=== PATIENT | female | born 1980 | race Caucasian/White ===

== ENCOUNTER 2016-11-05 10:29 | Emergency (ER) | payer MEDICAID ==
[2016-11-05] MEDS ORDERED: SODIUM CHLORIDE 0.9% 1,000 ML IV ONE (11:15)
[2016-11-05] MEDS ORDERED: ONDANSETRON 4 MG/2 ML VIAL IVP STA (11:16)
[2016-11-05] MEDS ORDERED: fentaNYL 100 MCG/2 ML VIAL IVP STA ×2 (11:16→12:12)
[2016-11-05] MEDS ORDERED: ONDANSETRON 4 MG/2 ML VIAL ONE (11:35)
[2016-11-05] MEDS ORDERED: fentaNYL 100 MCG/2 ML VIAL ONE ×2 (11:35→12:13)
[2016-11-05] MEDS ORDERED: PHENobarb/HYOSCY/ATROPINE/SCOP 5 ML SYRINGE PO STA (13:10)
[2016-11-05] MEDS ORDERED: MAG HYDROX/AL HYDROX/SIMETH 30 ML UDC PO STA (13:10)
[2016-11-05] MEDS ORDERED: SUCRALFATE 1 GM/10 ML UDC PO STA (13:10)
[2016-11-05] MEDS ORDERED: MAG HYDROX/AL HYDROX/SIMETH 30 ML UDC ONE (13:13)
[2016-11-05] MEDS ORDERED: PHENobarb/HYOSCY/ATROPINE/SCOP 5 ML SYRINGE PO ONE (13:13)
[2016-11-05] MEDS ORDERED: SUCRALFATE 1 GM/10 ML UDC ONE (13:13)
== END 2016-11-05 13:22 | disposition home or self-care (01) ==
DX: R10.13 Epigastric pain (principal); R03.0 Elevated blood-pressure reading, without diagnosis of hypertension; Z87.19 Personal history of other diseases of the digestive system; K21.9 Gastro-esophageal reflux disease without esophagitis; F17.200 Nicotine dependence, unspecified, uncomplicated
CPT/HCPCS: 36415; 74176; 80053; 83690; 84703; 85025; 93005; 93010; 96374; 96375; 96376; 99283; 99285; A9270

== ENCOUNTER 2018-07-10 07:13 | Observation (INO) | payer OTHER, MEDICAID ==
[2018-07-10] MEDS ORDERED: SODIUM CHLORIDE 0.9% 1,000 ML IV ONE (08:06)
[2018-07-10] MEDS ORDERED: KETOROLAC 60 MG/2 ML VIAL IVP STA (08:06)
--- NOTE | 2018-07-10 08:09 | ED Physician Documentation ---
History of Present Illness - Stated complaint Stated Complaint: ELECTRIC SHOCK - Chief complaint Chief Complaint: General - Additonal information Additional information: hx from pt 38 y/o f denies preg [place] 4th finger touched the machine and her R elbow was touching metal she states machine is wired to 220V she was unable to let go for several seconds then her elbow came off the metal -she felt severe pain up her arm to her chest - and she was able to let go was not thrown or suffered any blunt trauma to ED with CP, unable to catch her breath and pain to arm with cold fingers was well prior to this event Review of Systems Constitutional: denies: Fever, Chills Cardiac: reports: Chest pain / pressure, Palpitations Respiratory: reports: Dyspnea GI: reports: Vomiting (from cough). 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 - Present Medications Home Medications: Ambulatory Orders Medication Instructions Recorded Confirmed ALPRAZolam [Alprazolam] 0.5 mg PO DAILY PRN 07/10/18 07/10/18 Albuterol Sulfate [Proair Hfa 2 puffs INH Q4H PRN 07/10/18 07/10/18 Inhaler] Gabapentin 300 mg PO TID 07/10/18 07/10/18 Methylphenidate HCl 20 mg PO 0900,1600 07/10/18 07/10/18 - Allergies Allergies/Adverse Reactions: Allergies Allergy/AdvReac Type Severity Reaction Status Date / Time iodine Allergy Respiratory Verified 07/10/18 07:23 latex Allergy Rash Verified 07/10/18 07:23 morphine Allergy Itching Verified 07/10/18 07:23 tramadol Allergy Rash Verified 07/10/18 07:23 Anesthetics - Amide Type AdvReac Unknown Verified 07/10/18 07:23 hydromorphone HCl * AdvReac Unknown Verified 07/10/18 07:23 [From Dilaudid] - Social History Does the pt smoke?: Yes Smoking Status: Current every day smoker Does the pt drink ETOH?: No Does the pt have substance abuse?: No - Immunizations Immunizations are current?: Yes - POLST Patient has POLST: No PD ED PE NORMAL - Vitals Vital signs reviewed: Yes - General General: Alert and oriented X 3 - HEENT HEENT: PERRL - Neck Neck: Supple, no meningeal sign - Cardiac Cardiac: RRR, Other (tachy) - Respiratory Respiratory: No respiratory distress, Clear bilaterally - Abdomen Abdomen: Soft, Non tender - Derm Derm: Normal color - Extremities Extremities: Other (RUE: exit mary lou just above R elbow, prior surgical scar but pt denies hardware, arm cmpt soft, strong radial and ulnar pulses, brsk cap refill, but hand is cool, no sig swelling) - Neuro Neuro: Alert and oriented X 3, 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, No motor deficit, No sensory deficit Eye Opening: Spontaneous Motor: Obeys Commands Verbal: Oriented GCS Score: 15 Results - Vitals Vitals: Vital Signs - 24 hr 07/10/18 07/10/18 07/10/18 07:20 09:33 11:12 Temperature 36.5 C 37.7 C H Heart Rate 125 H 89 97 Respiratory 16 11 L 18 Rate Blood Pressure 123/75 106/67 118/72 O2 Saturation 100 100 99 Oxygen O2 Source Room air - EKG (time done) 0725 Rate: Rate (enter#) (122) Rhythm: Sinus tachycardia Ischemia: Normal ST segments - Labs Labs: Laboratory Tests 07/10/18 07/10/18 07/10/18 08:04 08:04 08:06 WBC 8.1 RBC 4.58 Hgb 13.8 Hct 40.6 MCV 88.8 MCH 30.2 MCHC 34.1 RDW 13.4 Plt Count 219 MPV 9.3 Neut # (Auto) 5.8 Lymph # (Auto) 1.5 [place] # (Auto) 0.7 Eos # (Auto) 0.1 Baso # (Auto) 0.0 Absolute Nucleated RBC 0.00 Nucleated RBC % 0.0 Sodium 136 Potassium 3.6 Chloride 105 Carbon Dioxide 25 Anion Gap 6.0 BUN 10 Creatinine 0.7 Estimated GFR (MDRD) 94 Glucose 112 H Calcium 8.7 Total Creatine Kinase 42 Troponin I < 0.04 - Rads (name of study) CXR Radiology: See rad report (NACPD) PD MEDICAL DECISION MAKING - ED course ED course: chest pain and tachycardia (up to 160 while I was in the room) gradually resolved - trop neg CK neg but given mechanism and her prolonged CP and VS merits prolonged tele also R arm becoming more painful and swollen, now pain with passive ext of fingers, still go cap refill but fingers cool, concern for cmpt syndrome despite meds in ED, sx are worsening spoke to ortho at 1035 to come to ED to eval cmpt and hospitalist at 1045 for admission see ortho consult Departure - Departure Disposition: ED Place in Observation Clinical Impression: Electric shock Qualifiers: Encounter type: initial encounter Qualified Code(s): T75.4XXA - Electrocution, initial encounter Chest pain Qualifiers: Chest pain type: unspecified Qualified Code(s): R07.9 - Chest pain, unspecified Arm pain Qualifiers: Laterality: right Qualified Code(s): M79.601 - Pain in right arm Condition: Good Discharge Date/Time: 07/10/18 12:10
[2018-07-10 08:20] LABS: CALCIUM 8.7 mg/dL (8.5-10.3); CREATININE 0.7 mg/dL (0.4-1.0)
[2018-07-10 08:24] LABS: BASOPHILS % (AUTO) 0.5 %; EOSINOPHILS # (AUTO) 0.1 10^3/uL (0.0-0.7); HGB - HEMOGLOBIN 13.8 g/dL (12.0-16.0); LYMPHOCYTES # (AUTO) 1.5 10^3/uL (1.5-3.5); MEAN CORPUSCULAR HEMOGLOBIN 30.2 pg (27.0-31.0); MEAN CORPUSCULAR HGB CONC 34.1 g/dL (32.0-36.0); MEAN CORPUSCULAR VOLUME 88.8 fL (81.0-99.0); MEAN PLATELET VOLUME 9.3 fL (7.9-10.8); MONOCYTES # (AUTO) 0.7 10^3/uL (0.0-1.0); MONOCYTES % (AUTO) 8.5 %; NEUTROPHILS # (AUTO) 5.8 10^3/uL (1.5-6.6); PLT - PLATELET COUNT 219 10^3/uL (130-450); RED BLOOD COUNT 4.58 10^6/uL (4.20-5.40); RED CELL DISTRIBUTION WIDTH 13.4 % (12.0-15.0); WHITE BLOOD COUNT 8.1 x10^3/uL (4.8-10.8)
--- NOTE | 2018-07-10 08:38 | XRAY Report ---
Reason: soa CP s/p electric shock Procedure Date: 07/10/2018 Accession Number: [id number] / [id number] Procedure: XR - Chest 2 View X-Ray CPT Code: 50372 FULL RESULT: EXAM: CHEST RADIOGRAPHY EXAM DATE: 07/10/2018 08:27 AM. CLINICAL HISTORY: Soa CP s/p electric shock. COMPARISON: None. TECHNIQUE: 2 views. FINDINGS: Lungs/Pleura: Lung volumes are low. Minimal bibasal opacity probably atelectasis. No focal pulmonary consolidation, significant pleural effusion, or evidence of pneumothorax. Mediastinum: Heart and mediastinal contours are unremarkable. Other: None. IMPRESSION: No convincing acute cardiopulmonary abnormality. RADIA
[2018-07-10] MEDS ORDERED: oxyCODONE 5 MG TABLET PO STA (09:42)
--- NOTE | 2018-07-10 11:11 | CONSULTATION NOTE ---
Referring Provider Name of Referring Provider:: Renee Estrada Consult Date: 07/10/18 Chief Complaint - Chief Complaint Chief Complaint: Asked to evaluate patient for reported progressing neurovascular symptoms History of Present Illness - History of Present Illness HPI Comment/Other: Salma is a 38-year-old female in her usual state of health until approximately 5 or 5:30 AM. She says she was at work and reaching into a device to change a light bulb and ultimately felt a shock coming through her right elbow. Patient said she had worsening pain and ultimately presented to the emergency room. Orthopedics was consulted by Dr. Estrada for reported developing neurovascular symptoms. The patient said that at some point her hand and wrist were somewhat cooler but that that has resolved and now they are feeling warmer. She says she has intermittent pain and describes pain in numerous locations from her hand forearm arm and shoulder. She says that she even has some side of the right rib pain. Says in these various locations it comes and goes and can sometimes feel like burning or stabbing pain. She says that this very instant she has some mild pain points to the distal medial arm and proximal right chest wall. She denies forearm pain at this instant. She is accompanied by her Andrez. 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 - POLST Patient has POLST: No Meds/Allgy - Home Medications Home Medications: Ambulatory Orders Medication Instructions Recorded Confirmed Albuterol Sulfate [Proair Hfa 2 puffs INH Q4H PRN 07/10/18 Inhaler] Gabapentin 300 mg PO TID 07/10/18 Methylphenidate HCl 20 mg PO BID 07/10/18 - Allergies Allergies/Adverse Reactions: Allergies Allergy/AdvReac Type Severity Reaction Status Date / Time iodine Allergy Respiratory Verified 07/10/18 07:23 latex Allergy Rash Verified 07/10/18 07:23 morphine Allergy Itching Verified 07/10/18 07:23 tramadol Allergy Rash Verified 07/10/18 07:23 Anesthetics - Amide Type AdvReac Unknown Verified 07/10/18 07:23 hydromorphone HCl * AdvReac Unknown Verified 07/10/18 07:23 [From Dilaudid] Exam - Vital Signs Vital Signs: Vital Signs x48h Temp Pulse Resp BP Pulse Ox 07/10/18 09:33 89 11 L 106/67 100 07/10/18 07:20 36.5 C 125 H 16 123/75 100 - Physical Exam Comments/Other: Patient is a well-developed well-nourished 38-year-old female in some distress. She is alert and oriented and cooperative with the exam. Patient is observed during the history portion of the exam to use the entire right upper extremity to demonstrate what happened to her earlier today. During this she is observed to freely move her shoulder elbow wrist and hand. She demonstrates radial median ulnar musculocutaneous and axillary motor and sensory function. She reports subjective mild decreased ulnar sensation over the ulnar aspect of the fifth digit but not elsewhere. She quickly and easily demonstrates flexion extension of all of her digits and wrist. She also easily flexes and extends the elbow and pronates and supinates the forearm. Right shoulder exam she has forward flexion within 5 degrees of the contralateral side she has 5 out of 5 rotator cuff strength throughout. Arm compartments are soft. forearm compartments compared to the contralateral are with trace increased firmness but remained quite supple and soft. No focal tenderness about the right forearm. Ports mild tightness, with terminal 5 degrees extension of the digits, near the proximal flexor musculature but denies significant pain. All other passive hand wrist elbow forearm motion is comfortable with no increase in pain. Conclusion/Plan - Diagnosis Diagnosis: Right upper extremity intermittent, multi focal pain status post electrical shock. No current significant evidence for forearm compartment syndrome. - Lab Results Fish Bones: 07/10/18 08:04 07/10/18 08:06 - Other Other Results/Comments: Salma is a 38-year-old female with right upper extremity intermittent and multifocal pain. This is status post right upper extremity electrical shock. Fortunately she is observed to spontaneously and voluntarily move all parts of the right upper extremity. Furthermore with examination, she moves her hand wrist forearm elbow freely. While she likely does have some soft tissue injury secondary to the shock, there does not appear to be significant evidence at this time for compartment syndrome. That said we did discuss the potential for developing compartment syndrome. We did discuss the potential for worsening and the potential signs and symptoms that may accompany compartment syndrome. Also discussed the potential devastating effects of compartment syndrome should that develop. Talked about the potential need for other intervention such as emergent surgery. In the meantime I recommended active and active assisted range of motion of her hand wrist forearm and elbow which will likely limit potential stiffness and longer term problems. I did caution her about avoidance of motion at this time. By report it does sound as if the patient will be admitted to the hospitalist service for observation. While it does not appear as if she has active compartment syndrome I think it is reasonable for pain management and continued neurovascular checks. As such I would recommend every hour neurovascular checks. We remain available for reevaluation as necessary if there is any worsening of her symptoms. This is communicated to the consulting hospitalist and the patient/. Patient and patient 's questions were answered they verbalized understanding and agreement with the above.
[2018-07-10] MEDS ORDERED: SODIUM CHLORIDE FLUSH 0.9% 10 ML SYRINGE IVP PRN (11:21)
[2018-07-10] MEDS ORDERED: fentaNYL 250 MCG/5 ML VIAL IVP PRN ×2 (11:24→13:07)
[2018-07-10] MEDS ORDERED: KETOROLAC 10 MG TABLET PO PRN (11:30)
[2018-07-10] MEDS ORDERED: LORazepam 2 MG/ML VIAL IVP PRN (11:30)
[2018-07-10] MEDS ORDERED: ACETAMINOPHEN 1,000 MG/100 ML 100 ML IV STA (11:40)
[2018-07-10] MEDS ORDERED: NS W/20 MEQ KCL 1,000 ML IV SCH (12:00)
[2018-07-10] MEDS ORDERED: OXYMETAZOLINE NASAL SPRAY NAS SCH (12:00)
--- NOTE | 2018-07-10 12:30 | HISTORY & PHYSICAL EXAMINATION ---
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 She reports that she sustained about a 5 second shock from a food warmer that keeps food at a temperature of 140 F as she was changing a light bulb. She states that she had the switch turned off, but for some reason she was told that it had shorted out which caused the shock to her right fingertips. This occurred at around 0500 on the [employer] passenger kitchen area and she almost immediately had mid-upper, anterior chest pain with pressure. She states that she was very reluctant in coming into the hospital, but was heavily encouraged to by her boss in the event she would have more complications. Orthopedic surgery was consulted in the ED, who advised no surgical interventions at this time, but it is important to keep a close eye as compartment syndrome could develop in her right forearm from the trauma and length of electrical shock. Labs were unremarkable, including a normal troponin. The patient's , Alonzo was at the bedside. She is agreeable to further work up including serial troponins, an echocardiogram and repeat EKG. She will be admitted to observation. 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 Her biological children are ages 11, 14, & 16. She works for the [employer]. She denies alcohol or illicit drug use, but has been dependent on tobacco since age 16 years. She wishes to be a FULL code. - Substance History Use: Uses substance without health or social issues: Tobacco Abuse: Recurrent use of substance despite neg consequences: NONE Dependence: Experiences withdrawal or developed tolerances: NONE Tobacco Details: Cigarettes - POLST Patient has POLST: No POLST Status: Full Code Meds/Allgy - Home Medications Home Medications: Ambulatory Orders Medication Instructions Recorded Confirmed ALPRAZolam [Alprazolam] 0.5 mg PO DAILY PRN 07/10/18 07/10/18 Albuterol Sulfate [Proair Hfa 2 puffs INH Q4H PRN 07/10/18 07/10/18 Inhaler] Gabapentin 300 mg PO TID 07/10/18 07/10/18 Methylphenidate HCl 20 mg PO 0900,1600 07/10/18 07/10/18 - Allergies Allergies/Adverse Reactions: Allergies Allergy/AdvReac Type Severity Reaction Status Date / Time iodine Allergy Respiratory Verified 07/10/18 07:23 latex Allergy Rash Verified 07/10/18 07:23 morphine Allergy Itching Verified 07/10/18 07:23 tramadol Allergy Rash Verified 07/10/18 07:23 Anesthetics - Amide Type AdvReac Unknown Verified 07/10/18 07:23 hydromorphone HCl * AdvReac Unknown Verified 07/10/18 07:23 [From Dilaudid] Review of Systems - Constitutional Constitutional: denies: Fatigue, Fever, Chills - Eyes Eyes: denies: Pain, Irritation, Amaurosis - Ears, Nose & Throat Ears, Nose & Throat: reports: Ear pain (chronic "fluid in ears"), Postnasal drainage - Cardiovascular Cariovascular: reports: Chest pain. denies: Irregular heart rate - Respiratory Respiratory: reports: Cough - Gastrointestinal Gastrointestinal: reports: Constipation, Diarrhea. denies: Abdominal pain, Abdominal distention - Genitourinary Genitourinary: denies: Dysuria - Musculoskeletal Musculoskeletal: denies: Muscle pain - Integumentary Integumentary: denies: Rash, Pruritis - Neurological Neurological: reports: Numbness (to right fingertips, hot/cold sensation). denies: General weakness - Psychiatric Psychiatric: reports: Depression, Anxiety, Other (ADD) - Hematologic/Lymphatic Hematologic/Lymphatic: denies: Anemia, Petechiae - All Other Systems All Other Systems: reports: Reviewed and negative Prior Level of Functionality: Ambulatory, works for the [employer]. Has never been disabled, has dependent children and a . Exam - Vital Signs Reviewed Vital Signs: Yes Vital Signs: Vital Signs x48h Temp Pulse Resp BP Pulse Ox 07/10/18 12:10 36.8 C 88 20 114/63 100 07/10/18 11:12 37.7 C H 97 18 118/72 99 07/10/18 09:33 89 11 L 106/67 100 07/10/18 07:20 36.5 C 125 H 16 123/75 100 - Physical Exam General Appearance: positive: Alert, Moderate distress, Anxious Eyes Bilateral: positive: PERRL ENT: positive: Pharynx nml, No signs of dehydration Neck: positive: Thyroid nml, No JVD, Lymphadenopathy (R), Lymphadenopathy (L) Respiratory: positive: Chest non-tender, No respiratory distress Cardiovascular: positive: Regular rate & rhythm, Systolic murmur Peripheral Pulses: positive: 2+ Abdomen: positive: Non-tender, Nml bowel sounds Back: positive: Nml inspection Skin: positive: No rash, Warm, Dry Extremities: positive: Non-tender, Full ROM, Nml appearance, No pedal edema Neurologic/Psychiatric: positive: Oriented x3, CN's nml (2-12), Motor nml, Sensation nml, Depressed mood/affect (tearful at times) Reflexes: Bicep (R): 3+, Bicep (L): 4+ Sepsis Event Note (H) - Evaluation Current Stage of Sepsis: Ruled out Conclusion/Plan - Problem List (1) Electrical shock of hand Conclusion/Plan: She reports that she sustained about a 5 second shock from a food warmer that keeps food at a temperature of 140 F as she was changing a light bulb. She states that she had the switch turned off, but for some reason she was told that it had shorted out which caused the shock to her right fingertips. This occurred at around 0500 on the [employer] passenger kitchen area and she almost immediately had mid-upper, anterior chest pain with pressure. An orthopedic consult was made by Dr. Timmons, who recommends active assisted range of motion of her hand wrist forearm and elbow which will likely limit potential stiffness and longer term problems. She was cautioned about avoidance of motion. It does not appear as if she has active compartment syndrome. Plan: Continue to monitor pain, neuro checks, and monitor for acute compartment syndrome. Qualifiers: Encounter type: initial encounter Qualified Code(s): T75.4XXA - Electrocution, initial encounter (2) Chest pain Conclusion/Plan: his occurred at around 0500 on the [facility] passenger kitchen area and she almost immediately had mid-upper, anterior chest pain with pressure. She states that she was very reluctant in coming into the hospital, but was heavily encouraged to by her boss in the event she would have more complications. She denies any prior cardiac history including TN, HTN, hyperlipidemia, but admits to smoking from age to currently. Plan: Await echo, repeat EKG, and serial troponin. (3) Tobacco dependence Conclusion/Plan: The patient has been a smoker since age 16 years and generally would smoke just over 1 PPD, and lately is down to 3/4s of a pack per day. She was very concerned with this hospital stay given her stress level and requested to leave the building to smoke, which I instructed her to stay. Plan: Nicotine patch, and encourage cessation. - Lab Results Lab results reviewed: Yes Maurice Bones: 07/10/18 08:04 07/10/18 08:06 Core Measures - Anticipated LOS I expect patient to be DC'd or transferred within 96 hours.: Yes - DVT/VTE - Prophylaxis VTE/DVT Device ordered at admit?: Yes VTE/DVT Prophylaxis med ordered at admit?: No Not Ordered - Medical Reason: Contraindicated - Stroke - Rehab Assessment Rehab services assessment to be ordered?: No Not Ordered - Medical Reason: Contraindicated - AMI - Statin at Admit Aspirin Prescribed on Admit: No Not Ordered - Medical Reason: Contraindicated
[2018-07-10] MEDS ORDERED: NICOTINE 21 MG PATCH TOP SCH (13:00)
[2018-07-10] MEDS ORDERED: fentaNYL 100 MCG/2 ML VIAL IVP PRN (13:19)
[2018-07-10] MEDS ORDERED: GABAPENTIN 300 MG CAPSULE PO SCH (14:00)
[2018-07-10 14:26] LABS: MAGNESIUM 1.9 mg/dL (1.7-2.8)
[2018-07-10] MEDS ORDERED: METHYLPHENIDATE 10 MG TABLET PO SCH (16:00)
--- NOTE | 2018-07-10 16:34 | DISCHARGE SUMMARY ---
Discharge Summary Admit Date: 07/10/18 Discharge Date: 07/10/18 Discharging Provider: SAM Stack Primary Care Provider: Dr. Edward Code Status: Attempt Resuscitation Condition at Discharge: Good Discharge Disposition: 01 Home, Self Care - DIAGNOSES Admission Diagnoses: Electrocution, initial encounter (T75.4XXA) Chest pain (R07.9) Tobacco dependence (F17.200) Discharge Diagnoses with Status of Each Condition: Electrocution, initial encounter (T75.4XXA) resolved. Chest pain (R07.9) resolved. Tobacco dependence (F17.200) chronic, ongoing with no interest in quitting. - HPI History of Present Illness: Chata Poon) Teresa is a 38-year old female with a past medical history of tobacco dependence, anxiety, ADD, and chronic vascular dysfunction of her fingers/toes. She reports that she sustained about a 5 second shock from a food warmer that keeps food at a temperature of 140 F as she was changing a light bulb. She states that she had the switch turned off, but for some reason she was told that it had shorted out which caused the shock to her right fingertips. This occurred at around 0500 on the [employer] passenger kitchen area and she almost immediately had mid-upper, anterior chest pain with pressure. She states that she was very reluctant in coming into the hospital, but was heavily encouraged to by her boss in the event she would have more complications. Orthopedic surgery was consulted in the ED, who advised no surgical interventions at this time, but it is important to keep a close eye as compartment syndrome could develop in her right forearm from the trauma and length of electrical shock. Labs were unremarkable, including a normal tro ponin. The patient's , Alonzo was at the bedside. She is agreeable to further work up including serial troponins, an echocardiogram and repeat EKG. She will be admitted to observation. - HOSPITAL COURSE Hospital Course: The patient was monitored for the day, had a normal echo, normal EKGs, and normal troponins. She was seen and examined by our orthopedic surgeon who suggested certain ROM exercises to help in the coming days. A work excuse was provided. She was instable condition and is expected to continue to improve at home. - ALLERGIES Allergies/Adverse Reactions: Allergies Allergy/AdvReac Type Severity Reaction Status Date / Time iodine Allergy Respiratory Verified 07/10/18 07:23 latex Allergy Rash Verified 07/10/18 07:23 morphine Allergy Itching Verified 07/10/18 07:23 tramadol Allergy Rash Verified 07/10/18 07:23 Anesthetics - Amide Type AdvReac Unknown Verified 07/10/18 07:23 hydromorphone HCl * AdvReac Unknown Verified 07/10/18 07:23 [From Dilaudid] - MEDICATIONS Home Medications: Ambulatory Orders Medication Instructions Recorded Confirmed ALPRAZolam [Alprazolam] 0.5 mg PO DAILY PRN 07/10/18 07/10/18 Albuterol Sulfate [Proair Hfa 2 puffs INH Q4H PRN 07/10/18 07/10/18 Inhaler] Gabapentin 300 mg PO TID 07/10/18 07/10/18 Methylphenidate HCl 20 mg PO 0900,1600 07/10/18 07/10/18 - PHYSICAL EXAM AT DISCHARGE General Appearance: positive: No acute distress, Alert, Anxious Eyes Bilateral: positive: PERRL, No lid inflammation, Conjunctivae nml ENT: positive: Pharynx nml, No signs of dehydration Neck: positive: Thyroid nml, No JVD, Trachea midline Respiratory: positive: Chest non-tender, No respiratory distress, Breath sounds nml Cardiovascular: positive: Regular rate & rhythm, No murmur, No gallop Peripheral Pulses: positive: 2+ Abdomen: positive: Non-tender, Nml bowel sounds Back: positive: Nml inspection Skin: positive: Color nml, No rash, Warm, Dry Extremities: positive: Non-tender, Full ROM, Nml appearance, No pedal edema Neurologic/Psychiatric: positive: Oriented x3, CN's nml (2-12), Motor nml, Sensation nml, Depressed mood/affect Reflexes: Bicep (R): 3+, Bicep (L): 3+ - LABS Result Diagrams: 07/10/18 08:04 07/10/18 08:06 - SEPSIS Current Stage of Sepsis: Ruled out - FOLLOW UP Follow Up: Follow Up instructions: You came to the ED after an accidental electric shock, accompanied by chest pain. Orthopedic surgery saw you and based on his exam, you were not having any complication such as compartment syndrome which would require immediate surgery. Your chest pain was very concerning, so you were kept in observation for much of today while we completed tests. The echocardiogram showed no evidence of heart damage. Serial troponins were negative x2, with one last lab pending. You continued to have "nerve" type pain in your right arm as a result of your injury. Continue to monitor this at home and return to the ED if the condition of your arm changes or becomes more painful with swelling. Please see your PCP within one week, he will get a discharge summary. I have filled out your paperwork and provided a note. - TIME SPENT Time Spent in Discharge (Minutes): 45
[2018-07-10] MEDS ORDERED: SODIUM CHLORIDE FLUSH 0.9% 10 ML SYRINGE IVP SCH (17:00)
[2018-07-10 17:02] VITALS: BP 94/43
[2018-07-10 17:09] LABS: MUDS CUTOFF CONCENTRATIONS CUTOFF CONC BELOW:
[2018-07-10 17:17] LABS: AMPHETAMINE SCREEN,URINE NEGATIVE (NEGATIVE); BENZODIAZEPINES SCREEN, URINE POSITIVE (NEGATIVE); COCAINE SCREEN URINE NEGATIVE (NEGATIVE); METHADONE SCREEN, URINE NEGATIVE (NEGATIVE); METHAMPHETAMINES SCREEN, URINE NEGATIVE (NEGATIVE); OPIATE SCREEN, URINE NEGATIVE (NEGATIVE); TRICYCLIC ANTIDEPRESSANT,URINE NEGATIVE (NEGATIVE)
[2018-07-10 17:18] LABS: OXYCODONE SCREEN, URINE POSITIVE (NEGATIVE); PROPOXYPHENE SCREEN, URINE NEGATIVE (NEGATIVE)
[2018-07-11] MEDS ORDERED: POLYETHYLENE GLYCOL 3350 17 GM PACKET PO SCH (09:00)
== END 2018-07-10 19:10 | disposition home or self-care (01) ==
LOC: ED 07:13 → OBS 11:21
PROVIDERS: ADMIT Nurse Practitioner; ATTEND Nurse Practitioner
DX: T75.4XXA Electrocution, initial encounter (principal); T22.021A Burn of unspecified degree of right elbow, initial encounter; R07.89 Other chest pain; W86.0XXA Exposure to domestic wiring and appliances, initial encounter; Y92.814 Boat as the place of occurrence of the external cause; Y99.0 Civilian activity done for income or pay; F17.210 Nicotine dependence, cigarettes, uncomplicated; F41.9 Anxiety disorder, unspecified; F32.9 Major depressive disorder, single episode, unspecified
CPT/HCPCS: 36415; 71046; 80048; 80306; 82550; 82977; 83605; 83735; 84484; 85025; 93005; 93306; 96361; 96365; 96375; 99284; A9270; G0378; J0131; J2060; 96374; 99283